=== PATIENT | male | born 1960 | race American Indian/Alaskan Native ===

== ENCOUNTER 2016-09-23 08:02 | Emergency (ER) | payer MEDICARE ==
[2016-09-23 08:13] VITALS: BP 126/74
[2016-09-23 08:35] LABS: Basophils % (Auto) 0.7 % (0.0-1.8); Eosinophils % (Auto) 3.8 % (0.0-4.3); Hematocrit 44.3 % (35.5-45.6); Hemoglobin 14.6 gm/dl (11.8-15.2); Mean Corpuscular HGB Conc 33 % (32-34); Mean Corpuscular Hemoglobin 34 pg (28-32); Mean Corpuscular Volume 102 fl (84-94); Platelet Count 221 K/mm3 (140-440); Red Blood Count 4.33 M/mm3 (3.65-5.03); Red Cell Distribution Width 12.1 % (13.2-15.2); White Blood Count 4.3 K/mm3 (4.5-11.0)
[2016-09-23 08:51] LABS: Anion Gap 16 mmol/L; BUN/Creatinine Ratio 16.25; Blood Urea Nitrogen 13 mg/dL (9-20); Calcium 9.1 mg/dL (8.4-10.2); Carbon Dioxide 28 mmol/L (22-30); Chloride 102.7 mmol/L (98-107); Glucose 101 mg/dL (75-100); Potassium 3.5 mmol/L (3.6-5.0); Sodium 143 mmol/L (137-145)
--- NOTE | 2016-09-23 13:16 | Emergency Department Report ---
ED Chest Pain HPI - General Chief Complaint: Chest Pain Stated Complaint: CHEST PAIN Time Seen by Provider: 09/23/16 13:12 Source: patient Mode of arrival: Ambulatory Limitations: No Limitations - Related Data Allergies Allergy/AdvReac Type Severity Reaction Status Date / Time No Known Allergies Allergy Unverified 09/23/16 08:13 ED Review of Systems ROS: Stated complaint: CHEST PAIN Other details as noted in HPI ED Past Medical Hx - Past Medical History Previous Medical History?: No - Surgical History Past Surgical History?: Yes Additional Surgical History: Brain Sx 1993. Left Wrist 1986 - Social History Smoking Status: Former Smoker Substance Use Type: Alcohol ED Physical Exam - General Limitations: No Limitations ED Course Vital Signs 09/23/16 08:07 Temperature 97.2 F L Pulse Rate 63 Blood Pressure 126/74 O2 Sat by Pulse 95 Oximetry ED Medical Decision Making - Lab Data Result diagrams: 09/23/16 08:22 09/23/16 08:22 Laboratory Results - last 24 hr 09/23/16 09/23/16 09/23/16 08:22 08:22 11:33 WBC 4.3 L RBC 4.33 Hgb 14.6 Hct 44.3 MCV 102 H MCH 34 H MCHC 33 RDW 12.1 L Plt Count 221 Lymph % (Auto) 48.[address] [place] % (Auto) 11.4 H Eos % (Auto) 3.8 Baso % (Auto) 0.7 Lymph # 2.1 [place] # 0.5 Eos # 0.2 Baso # 0.0 Seg Neutrophils % 35.7 L Seg Neutrophils # 1.5 L Sodium 143 Potassium 3.5 L Chloride 102.7 Carbon Dioxide 28 Anion Gap 16 BUN 13 Creatinine 0.8 Estimated GFR > 60 BUN/Creatinine Ratio 16.25 Glucose 101 H Calcium 9.1 Troponin T < 0.010 < 0.010 - EKG Data EKG shows normal: sinus rhythm, axis, intervals, QRS complexes, ST-T waves Rate: normal - EKG Data Interpretation: other (consider left atrial enlargement possible low lead placement inverted T-wave in V2 nonspecific) Critical care attestation.: If time is entered above; I have spent that time in minutes in the direct care of this critically ill patient, excluding procedure time. ED Disposition Condition: Stable
== END 2016-09-23 12:26 | disposition left against medical advice (07) ==
LOC: ED 08:02
DX: R07.9 Chest pain, unspecified (principal); Z53.21 Procedure and treatment not carried out due to patient leaving prior to being seen by health care provider
CPT/HCPCS: 36415; 80048; 84484; 85025; 93005; 93010